=== PATIENT | male | born 1970 | race Caucasian/White ===

== ENCOUNTER 2017-08-13 23:13 | Emergency (ER) | payer OTHER ==
[~2017-08-13] VITALS: Ht 172.7 cm; Wt 90.7 kg
[2017-08-13 23:15] VITALS: BP_SYST 136
[2017-08-13 23:50] VITALS: BP_SYST 136
== END 2017-08-13 23:50 ==
LOC: SED 23:13
DX: Z02.89 Encounter for other administrative examinations (principal)